=== PATIENT | female | born 1960 | race Caucasian/White ===

== ENCOUNTER 2017-03-16 08:10 | Day surgery (SDC) | payer BC ==
[~2017-03-16] VITALS: Ht 161.9 cm; Wt 77.7 kg
== END 2017-03-16 11:55 | disposition short-term general hospital (02) ==
LOC: SURGOP 08:10
PROC: 0DJD8ZZ Inspection of Lower Intestinal Tract, Via Natural or Artificial Opening Endoscopic (ICD-10-PCS; principal; 2017-03-16)
DX: Z12.11 Encounter for screening for malignant neoplasm of colon (principal); E03.9 Hypothyroidism, unspecified; E78.5 Hyperlipidemia, unspecified; Z88.0 Allergy status to penicillin; Z79.899 Other long term (current) drug therapy; Z87.39 Personal history of other diseases of the musculoskeletal system and connective tissue; Z90.89 Acquired absence of other organs
CPT/HCPCS: J2175; J2250